=== PATIENT | male | born 1970 ===

== ENCOUNTER 2017-06-03 23:22 | Emergency (ER) | payer SELFPAY ==
[~2017-06-03] VITALS: Ht 162.6 cm; Wt 75.0 kg
[2017-06-03 23:26] VITALS: Ht 162.6 cm; Wt 75.0 kg
== END 2017-06-04 00:10 | disposition left against medical advice (07) ==
LOC: E/R 23:22
DX: Z53.21 Procedure and treatment not carried out due to patient leaving prior to being seen by health care provider (principal)